=== PATIENT | female | born 1985 | race Caucasian/White ===

== ENCOUNTER 2018-11-22 16:15 | Emergency (ER) | payer MEDICAID ==
[~2018-11-22] VITALS: Ht 154.9 cm; Wt 117.0 kg
[~2018-11-22 16:15] MED LIST: ALBU8.5H8 INH; GUAI120015 PO; ONDA4TAB12 PO
[2018-11-22] MEDS ORDERED: normal saline 1000ML IV soln IVB ONE (17:25)
[2018-11-22] MEDS ORDERED: LIDOcaine 1% w/EPI 1:200,000 injection 10mL vial IM ONE (17:35)
[2018-11-22] MEDS ORDERED: LIDOcaine 1% W/epiNEPHrine 1:100,000 20ml vial IJ ONE (17:40)
[2018-11-22] MEDS ORDERED: SULF1TAB49 PO (17:41)
[2018-11-22] MEDS ORDERED: CEPH-572 PO (17:41)
[2018-11-22 17:49] LABS: BASOPHILS % (AUTO) 0.3 % (0-1); EOSINOPHILS # (AUTO) 0.3 X10'3 (0-0.9); EOSINOPHILS % (AUTO) 2.6 % (0-6); HEMATOCRIT 42.9 % (35.0-45.0); HEMOGLOBIN 14.2 g/dl (12.0-16.0); LYMPHOCYTES # (AUTO) 1.4 X10'3 (1.1-4.8); LYMPHOCYTES % (AUTO) 12.9 % (21-51); MEAN CORPUSCULAR HEMOGLOBIN 30.3 PG (27.0-31.0); MEAN CORPUSCULAR HGB CONC 33.1 g/dL (33.0-36.5); MEAN CORPUSCULAR VOLUME 91.4 FL (78-98); MONOCYTES % (AUTO) 9.7 % (2-12); NEUTROPHILS % (AUTO) 74.5 % (42-75); PLATELET COUNT 227 X10'3 (140-440); RED BLOOD COUNT 4.69 X10'6 (4.20-5.60); RED CELL DISTRIBUTION WIDTH 13.3 % (11.5-14.5); WHITE BLOOD COUNT 10.7 X10'3 (4.5-11.0)
[2018-11-22 17:54] LABS: PARTIAL THROMBOPLASTIN TIME 27 SECONDS (22-32)
[2018-11-22 17:55] LABS: ALANINE AMINOTRANSFERASE 16 U/L (12-78); ALBUMIN 3.4 G/DL (3.4-5.0); ALBUMIN/GLOBULIN RATIO 0.9 (1.1-1.5); ALKALINE PHOSPHATASE 53 IU/L (46-116); ANION GAP 10 (8-16); ASPARTATE AMINO TRANSFERASE 6 U/L (10-37); BILIRUBIN,TOTAL 1.3 MG/DL (0.1-1.0); BLOOD UREA NITROGEN 11 MG/DL (7-18); CALCIUM 8.5 MG/DL (8.5-10.1); CHLORIDE 103 MMOL/L (99-107); GLUCOSE 92 MG/DL (70-104); POTASSIUM 3.7 MMOL/L (3.5-5.1); SODIUM 138 MMOL/L (135-145); TOTAL CARBON DIOXIDE 25.4 MMOL/L (24-32); TOTAL PROTEIN 7.1 G/DL (6.4-8.2); eGFR 63 ML/MIN
[2018-11-22 18:20] LABS: CLARITY,URINE SLIGHTLY CLOUDY (Clear); COLOR,URINE YELLOW (Yellow); GLUCOSE, URINE NEGATIVE (Neg); KETONES,URINE NEGATIVE (Neg); LEUKOCYTE ESTERASE ,URINE NEGATIVE (Neg); NITRITES, URINE NEGATIVE (Neg); OCCULT BLOOD,URINE TRACE-INTACT (Neg); PH,URINE 5.5 (4.8-8.0); PROTEIN,URINE NEGATIVE (Neg); UA COLLECTION TYPE CLN CATCH MIDSTREAM
[2018-11-22 18:57] LABS: BACTERIA,URINE 1+ /HPF (Neg); RBC,URINE 0-2 /HPF (0-2); WBC,URINE 0-4 /HPF (0-4)
[2018-11-22 18:58] LABS: MUCUS STRANDS MANY /LPF (Neg); SQUAMOUS EPITHELIAL CELL,UR MANY /LPF (FEW)
[2018-11-22 19:11] VITALS: BP 113/58
== END 2018-11-22 19:37 | disposition home or self-care (01) ==
LOC: ER 16:15
DX: L02.211 Cutaneous abscess of abdominal wall (principal); G89.29 Other chronic pain; F12.90 Cannabis use, unspecified, uncomplicated; F15.90 Other stimulant use, unspecified, uncomplicated; Z86.14 Personal history of Methicillin resistant Staphylococcus aureus infection; Z98.890 Other specified postprocedural states; Z79.899 Other long term (current) drug therapy
CPT/HCPCS: 10060; 36415; 71045; 80053; 81001; 83605; 84145; 85025; 85610; 85730; 87040; 99284; J7030

== ENCOUNTER 2019-04-01 08:03 | Emergency (ER) | payer MEDICAID ==
[~2019-04-01] VITALS: Ht 154.9 cm; Wt 125.9 kg
[2019-04-01] MEDS ORDERED: TETanus/Pertussis (Acell)/Diphther VAC/PF (Tdap-Adult) 0.5ml syringe IMVAC ONE (08:35)
[2019-04-01] MEDS ORDERED: mupirocin 2% ointment 22GM TP ONE (08:35)
[2019-04-01] MEDS ORDERED: LIDOcaine 1% 30ml preserv. free vial IJ ONE (08:35)
[2019-04-01] MEDS ORDERED: CefTRIAXone 1000mg IM Kit (w/lidocaine diluent) IM ONE (08:40)
[2019-04-01] MEDS ORDERED: ondansetron/PF 4mg/2ml inj IV ONE (09:05)
[2019-04-01] MEDS ORDERED: ondansetron 4mg rapidly disintigrating tab PO ONE (09:10)
[2019-04-01] MEDS ORDERED: SULF1TAB49 PO (09:12)
[2019-04-01 09:24] VITALS: BP 119/69
[2019-04-01] MEDS ORDERED: HYDROcodone/acetaminophen 5mg/325mg tablet PO ONE (09:30)
== END 2019-04-01 10:01 | disposition home or self-care (01) ==
LOC: ER 08:04
DX: S60.420A Blister (nonthermal) of right index finger, initial encounter (principal); L03.011 Cellulitis of right finger; G89.29 Other chronic pain; F12.90 Cannabis use, unspecified, uncomplicated; F15.90 Other stimulant use, unspecified, uncomplicated; Z86.14 Personal history of Methicillin resistant Staphylococcus aureus infection; Z98.890 Other specified postprocedural states; Z79.899 Other long term (current) drug therapy; W18.2XXA Fall in (into) shower or empty bathtub, initial encounter; Y93.89 Activity, other specified; Y92.89 Other specified places as the place of occurrence of the external cause; Y99.8 Other external cause status
CPT/HCPCS: 10060; 73140; 90471; 90715; 96372; 99284; J0696; J2001

== ENCOUNTER 2019-04-02 06:57 | Emergency (ER) | payer MEDICAID ==
[~2019-04-02] VITALS: Ht 154.9 cm; Wt 127.0 kg
[~2019-04-02 06:57] MED LIST changes: +SULF1TAB49 PO
[2019-04-02 07:49] VITALS: BP 109/66
== END 2019-04-02 08:12 | disposition home or self-care (01) ==
LOC: ER 06:58
DX: Z48.01 Encounter for change or removal of surgical wound dressing (principal); G89.29 Other chronic pain; F12.90 Cannabis use, unspecified, uncomplicated; F15.90 Other stimulant use, unspecified, uncomplicated; Z86.14 Personal history of Methicillin resistant Staphylococcus aureus infection; Z98.890 Other specified postprocedural states; Z79.899 Other long term (current) drug therapy
CPT/HCPCS: 99282

== ENCOUNTER 2019-06-30 14:12 | Emergency (ER) | payer MEDICAID ==
[~2019-06-30] VITALS: Ht 152.4 cm; Wt 100.0 kg
[~2019-06-30 14:12] MED LIST changes: -SULF1TAB49 PO
--- NOTE | 2019-06-30 14:19 | NUR ---
Call to poison control at this time. Recommends observation for depressed [employer], depressed respiratory status, recommends activated charcoal if patient is awake enough. Observation for 4 hrs according to peak of ativan ingested at 1345. No cardiac side effects expected. Recommends aspirin, acetaminophen, alcohol, and CMP labs.
--- NOTE | 2019-06-30 14:26 | NUR ---
Dr Mccarthy made aware of call to Poison control and MD coco to enter orders.
[2019-06-30] MEDS ORDERED: normal saline 1000ml 1,000 ML IV ONE (14:30)
[2019-06-30] MEDS: charcoal, activated 50 GM/240 ML bottle PO ONE ×2 (14:32→14:40)
[2019-06-30 14:38] LABS: BASOPHILS # (AUTO) 0.1 X10'3 (0-0.2); BASOPHILS % (AUTO) 1.7 % (0-1); EOSINOPHILS # (AUTO) 0.2 X10'3 (0-0.9); EOSINOPHILS % (AUTO) 2.3 % (0-6); HEMATOCRIT 47.1 % (35.0-45.0); HEMOGLOBIN 15.3 g/dl (12.0-16.0); LYMPHOCYTES # (AUTO) 2.5 X10'3 (1.1-4.8); LYMPHOCYTES % (AUTO) 32.3 % (21-51); MEAN CORPUSCULAR HEMOGLOBIN 29.8 PG (27.0-31.0); MEAN CORPUSCULAR HGB CONC 32.5 g/dL (33.0-36.5); MEAN CORPUSCULAR VOLUME 91.9 FL (78-98); MEAN PLATELET VOLUME 8.7 FL (7.4-10.4); MONOCYTES # (AUTO) 0.4 X10'3 (0-0.9); MONOCYTES % (AUTO) 5.1 % (2-12); NEUTROPHILS # (AUTO) 4.5 X10'3 (1.8-7.7); NEUTROPHILS % (AUTO) 58.6 % (42-75); PLATELET COUNT 355 X10'3 (140-440); RED BLOOD COUNT 5.12 X10'6 (4.20-5.60); RED CELL DISTRIBUTION WIDTH 13.9 % (11.5-14.5); WHITE BLOOD COUNT 7.6 X10'3 (4.5-11.0)
[2019-06-30 14:47] LABS: ALANINE AMINOTRANSFERASE 25 U/L (12-78); ALBUMIN 3.6 G/DL (3.4-5.0); ALBUMIN/GLOBULIN RATIO 0.9 (1.1-1.5); ALKALINE PHOSPHATASE 68 IU/L (46-116); ANION GAP 10 (8-16); ASPARTATE AMINO TRANSFERASE 15 U/L (10-37); BILIRUBIN,TOTAL 0.4 MG/DL (0.1-1.0); CALCIUM 9.4 MG/DL (8.5-10.1); CHLORIDE 106 MMOL/L (99-107); GLUCOSE 94 MG/DL (70-104); POTASSIUM 3.8 MMOL/L (3.5-5.1); SODIUM 141 MMOL/L (135-145); TOTAL CARBON DIOXIDE 25.1 MMOL/L (24-32); TOTAL PROTEIN 7.8 G/DL (6.4-8.2)
[2019-06-30 14:55] LABS: BLOOD UREA NITROGEN 5 MG/DL (7-18); CREATININE 1.17 MG/DL (0.40-0.90); ETHANOL < 0.010 GM/DL (0.0-0.010); eGFR 52 ML/MIN
[2019-06-30 14:56] LABS: ACETAMINOPHEN < 2.0 UG/ML (10-30); BUN/CREATININE RATIO 4.3 (6.6-38.0)
[2019-06-30 15:01] LABS: CLARITY,URINE SLIGHTLY CLOUDY (Clear); COLOR,URINE STRAW (Yellow); GLUCOSE, URINE NEGATIVE (Neg); KETONES,URINE NEGATIVE (Neg); LEUKOCYTE ESTERASE ,URINE LARGE (Neg); NITRITES, URINE POSITIVE (Neg); OCCULT BLOOD,URINE MODERATE (Neg); PROTEIN,URINE NEGATIVE (Neg); UA COLLECTION TYPE CLN CATCH MIDSTREAM; URINE HCG NEGATIVE (NEG); UROBILINOGEN,URINE 0.2 E.U/dL (0.2-1.0)
[2019-06-30 15:06] LABS: BACTERIA,URINE 4+ /HPF (Neg); MUCUS STRANDS NONE SEEN /LPF (Neg); SQUAMOUS EPITHELIAL CELL,UR MODERATE /LPF (FEW); WBC CLUMPS,URINE MODERATE /HPF (NEGATIVE); WBC,URINE TNTC /HPF (0-4)
[2019-06-30 15:08] LABS: URINE AMPHETAMINE SCREEN NEGATIVE (Neg); URINE BARBITUATE SCREEN NEGATIVE (Neg); URINE BENZODIAZEPINES SCREEN NEGATIVE (Neg); URINE CANNABINOID SCREEN NEGATIVE (Neg); URINE COCAINE SCREEN NEGATIVE (Neg); URINE METHADONE SCREEN NEGATIVE (Neg); URINE OPIATE SCREEN NEGATIVE (Neg); URINE PHENCYCLIDINE SCREEN NEGATIVE (Neg)
--- NOTE | 2019-06-30 15:24 | NUR ---
Assumed care of pt. Moved to ED bed 8 via amb with steady gait. Sitter at bedside. Will continue to monitor.
[2019-06-30] MEDS ORDERED: OLANZapine **IM** 10 mg inj. IM ONE (19:50)
[2019-06-30] MEDS ORDERED: diphenhydrAMINE 50 mg/ml inj IM ONE (19:50)
--- NOTE | 2019-06-30 20:00 | NUR ---
relieving RN for break, pt is trying to leave, pt has been informed several times today she is on 5150 hold and knows she is on a 72 hour hold, pt still trying to leave "I want to fucking go home and be with my kids....fuck you", pt is very uncooperative, verbally abusive and attempting to hit staff. Medicated per MD order
--- NOTE | 2019-06-30 20:05 | NUR ---
IV to rt AC removed, cannula intact
--- NOTE | 2019-06-30 20:15 | NUR ---
pt placed in restraints, Dr Mccarthy aware, report to Ryann CARDENAS,
--- NOTE | 2019-06-30 20:46 | NUR ---
Patient verbally de-escalated. She states that she will calm down if we remove the restraitns when she does. Patient has been quiet for the last 15 minutes. Patient updated on POC and reports that she understands she cannot leave but is still tearful. Restraints removed and patient is resting in bed quietly.
--- NOTE | 2019-06-30 23:08 | NUR ---
Poison control called for an update on this patient. No further advise from poison control at this time. Patient is sleeping quietly on her right side.
--- NOTE | 2019-07-01 01:10 | NUR ---
...pt is resting quietly on bed,
--- NOTE | 2019-07-01 01:10 | NUR ---
Pradeep blood in ED - 07/01/19 at 0117 by NURIS relieving RN for break, pt is resting trina
--- NOTE | 2019-07-01 01:15 | NUR ---
pt amb with slightly unsteady gait to restroom, politely asked for water,
--- NOTE | 2019-07-01 02:18 | NUR ---
Patient is sleeping quietly in a prone position.
[2019-07-01] MEDS ORDERED: LORA2TAB96 PO (02:37)
[2019-07-01] MEDS ORDERED: CYCL-1 PO (02:37)
[2019-07-01] MEDS ORDERED: LORA-269 PO (02:47)
[2019-07-01] MEDS ORDERED: cyclobenzaprine 10mg tablet PO PRN (03:00)
--- NOTE | 2019-07-01 03:59 | NUR ---
Patient is sleeping quietly on her left side.
--- NOTE | 2019-07-01 05:26 | NUR ---
Patient sleeping quietly on her right side.
[2019-07-01 05:30] VITALS: BP 114/72
--- NOTE | 2019-07-01 08:30 | NUR ---
ATTEMPTED TO CALL HER DAUGHTER WITHOUT SUCCESS. PATIENT SLIGHTLY AGITATED AT THIS TIME BECAUSE SHE FEELS THAT SHE DOES NOT BELONG HERE AND "WAS NOT TRYING TO HARM HERSELF".
--- NOTE | 2019-07-01 08:32 | NUR ---
NELIDA LOO [phone]
[2019-07-01] MEDS: LORazepam 1 MG tablet PO SCH ×2 (08:39→08:40)
--- NOTE | 2019-07-01 08:43 | NUR ---
PATIENT REFUSED MORNING ATIVAN DOSE AND STATES SHE IS "FINE" RIGHT NOW. DOSE WASTED AND WITNESSED BY THERESA MONCADA.
== END 2019-07-01 12:08 | disposition home or self-care (01) ==
LOC: ER 14:12
DX: F25.9 Schizoaffective disorder, unspecified (principal); F41.9 Anxiety disorder, unspecified; G89.29 Other chronic pain; F31.9 Bipolar disorder, unspecified; F12.90 Cannabis use, unspecified, uncomplicated; F15.90 Other stimulant use, unspecified, uncomplicated; Z86.14 Personal history of Methicillin resistant Staphylococcus aureus infection; Z79.899 Other long term (current) drug therapy
CPT/HCPCS: 36415; 80053; 80305; 80320; 80329; 81001; 81025; 84443; 85025; 96372; 99285; J1200; J3490; J7030